=== PATIENT | female | born 1990 | race Caucasian/White ===

== ENCOUNTER 2018-09-14 10:16 | Observation (INO) | payer OTHER, SELFPAY ==
[2018-09-14] VITALS (15 sets, daily range): BP systolic 96–138; BP diastolic 52–97; PULSE 44–92; RESP 12–20; TEMP 36.2–36.9; O2SAT 80–100; BMI 41.5; BMI 41.9
--- NOTE | 2018-09-14 | PATH_ITS ---
[facility] Accession Number: [id number] . 01 Material submitted: . GALLBLADDER WITH CONTENTS . 02 Diagnosis: Gallbladder, Cholecystectomy: Chronic cholecystitis with cholelithiasis. One benign cystic duct lymph node. Negative for dysplasia and malignancy. MRV/09/19/2018 . 02 Electronically signed: . Gavi Aceves MD, Pathologist NPI- [id number] . 01 Gross description: . Received in formalin, labeled gallbladder, is an intact gallbladder (length-14.1 cm, diameter-4.0 cm) with olson-hwang smooth shiny serosa and a patent cystic duct. A lymph node (1.1 x 0.8 x 0.4 cm) is identified. The lumen contains brown turbid gelatinous material and one hwang-red oblong gritty calculus (3.8 x 2.5 x 1.8 cm) with an robyn crystalline cut surface. The mucosa is hwang smooth and flat. The wall is up to 0.1 cm thick. No nodules, masses or lesions are identified. Section code: (A1) cystic duct resection margin and two serial sections from the body; (A2) two longitudinal sections from the fundus; (A3) one bisected lymph node. ([id number]) /MRV . 02 Pathologist provided ICD-10: K80.60 . 02 CPT . 899367 Performed at: 01 [facility] [address] [place] [address], [place], [place] [id number] MD Eulogio Mills MD Phone: [phone] Performed at: 02 [facility] [address] [place], [place] [id number] MD Gavi Aceves MD Phone: [phone]
[2018-09-14] MEDS: ONDANSETRON 4 MG/2 ML INJ IV (10:35)
[2018-09-14 10:43] LABS: Add Manual Diff / Slide Review NO; Basophils Percent Auto 0.6 % (0-2); Hematocrit 45.3 % (36-46); Hemoglobin 15.2 g/dL (12.0-16.0); Lymphocytes Percent Auto 32.3 % (25-40); Mean Corpuscular HGB Conc 33.6 % (30-36); Mean Corpuscular Hemoglobin 31.1 PG (26-34); Mean Corpuscular Volume 92.5 fL (80-100); Monocytes Percent Auto 7.6 % (3-14); Neutrophils Absolute Auto 6400 /uL (3000-5900); Neutrophils Percent Auto 55.5 % (50-75); Platelet Count 237 X10^3/uL (150-400); Red Blood Cell Count 4.89 X10^6/uL (4.0-5.2); Red Cell Distribution Width 13.4 % (11.6-14.8); White Blood Cell Count 11.5 X10^3/uL (4.5-11.0)
[2018-09-14 10:46] LABS: Prothrombin Time 11.2 SECONDS (10.1-12.7)
[2018-09-14 10:49] LABS: PTT Partial Thromboplastin Tim 32 SECONDS (26.4-36.2)
--- NOTE | 2018-09-14 10:52 | ED.ABDPAIN ---
HPI - Abdominal Pain General Chief Complaint: Abdominal Pain Stated Complaint: PAIN IN BACK UNDER RIGHT SHOULDER Time Seen by Provider: 09/14/18 10:52 Source: patient Mode of arrival: ambulatory Limitations: no limitations History of Present Illness HPI narrative: 28-year-old female here for evaluation of right mid back pain and right flank pain radiating around to her right upper quadrant. Patient states that she does have a history of gallbladder stones that was diagnosed after an ultrasound was performed a couple years ago. She states that this was found after having symptoms very similar to what she has today. Has had some nausea but no vomiting. No rashes. Has not tried anything for this prior to arrival. States that it woke her from sleep in the middle the night. Has continued since then. Related Data Home Medications Medication Instructions Recorded Confirmed multivitamin 1 tab PO DAILY 09/14/18 09/14/18 Allergies Allergy/AdvReac Type Severity Reaction Status Date / Time No Known Drug Allergies Allergy Verified 09/14/18 10:21 Review of Systems Constitutional Denies fever(s) and Denies headache(s) ENT Ears, Nose, Mouth, and Throat: Denies vertigo and Denies headache(s) Cardiovascular Denies chest pain, Denies syncope and Denies dyspnea Respiratory Denies dyspnea Gastrointestinal Gastrointestinal: Reports abdominal pain, Denies change in bowel habits, Reports nausea and Denies vomiting Genitourinary Denies dysuria, Reports flank pain and Denies vaginal discharge Musculoskeletal Denies myalgias and Denies arthralgias Integumentary/Breasts Denies rash Neurologic Denies vertigo, Denies syncope and Denies headache(s) Hematologic/Lymphatic Denies easy bleeding and Denies easy bruising [facility] Medical History Cholelithiasis (Acute) Morbid obesity with BMI of 40.0-44.9, adult (Acute) Surgical History H/O tubal ligation (Acute) Previous section (Acute) Family History: Reviewed 09/14/18 by Reece Myers MD Social History Smoking Status: Current every day smoker Exam Initial Vital Signs Initial Vital Signs: Vital Signs Temperature 97.4 F L 09/14/18 10:18 Pulse Rate 80 09/14/18 10:18 Respiratory Rate 14 09/14/18 10:18 Blood Pressure 138/97 H 09/14/18 10:18 Pulse Oximetry 97 09/14/18 10:18 Const General: cooperative, well developed, well groomed and No acute distress Orientation: alert, awake and oriented x3 Chest Chest: normal inspection of the chest Resp Effort & Inspection: normal respiratory effort Auscultation: clear to auscultation bilaterally Cardio Rate: regular rate Rhythm: regular rhythm GI Inspection: non-distended Palpation: soft, No firm and tender ( right upper quadrant. Positive White sign) Back/Spine/Pelvis Back: No CVA tenderness Skin Lesions: no lesions Rashes: no rashes Neuro General: alert, awake and oriented x3 Extrem General: normal to inspection and capillary refill normal Psych Appearance: grossly normal and well kempt Course Orders Ordered: ED Orders 09/14/18 10:25 Complete Blood Count AUTO DIFF Stat Comprehensive Metabolic Panel Stat Lipase Stat Partial Thromboplastin Time Stat Test Serum,Qual Stat Prothrombin Time INR Stat 09/14/18 11:11 US abdomen complete Stat Discontinued Medications Morphine Sulfate (Morphine) 4 mg IV NOW ONE Stop: 09/14/18 11:12 Last Admin: 09/14/18 11:17 Dose: 4 mg Ondansetron HCl (Zofran) 4 mg IV NOW ONE Stop: 09/14/18 10:26 Last Admin: 09/14/18 10:35 Dose: 4 mg Vital Signs - 8 hr 09/14/18 10:18 09/14/18 13:30 Temperature 97.4 F L Pulse Rate 80 50 L Respiratory Rate 14 12 Blood Pressure 138/97 H Blood Pressure [Left Arm] 108/65 Pulse Oximetry 97 100 MDM - Abdominal Pain Lab Data Attestation: I reviewed the patient's lab results. Result diagrams: 09/14/18 10:25 09/14/18 10:25 Lab Results 09/14/18 09/14/18 09/14/18 Range/Units 10:25 10:25 10:25 WBC 11.5 H (4.5-11.0) X10^3/uL RBC 4.89 (4.0-5.2) X10^6/uL Hgb 15.2 (12.0-16.0) g/dL Hct 45.3 (36-46) % MCV 92.5 (80-100) fL MCH 31.1 (26-34) PG MCHC 33.6 (30-36) % RDW 13.4 (11.6-14.8) % Plt Count 237 (150-400) X10^3/uL Neut % (Auto) 55.5 (50-75) % Lymph % (Auto) 32.3 (25-40) % [place] % (Auto) 7.6 (3-14) % Eos % (Auto) 4.0 (2-4) % Baso % (Auto) 0.6 (0-2) % Neut # (Auto) 6400 H (9085-5233) /uL PT 11.2 (10.1-12.7) SECONDS INR 1.0 (0.9-1.3) APTT 32 (26.4-36.2) SECONDS Sodium 141 (137-145) mmol/L Potassium 4.5 (3.4-5.1) mmol/L Chloride 105 (98-107) mmol/L Carbon Dioxide 23 (22-32) mmol/L BUN 15 (7-17) mg/dL Creatinine 0.80 (0.52-1.04) mg/dL Estimated GFR > 60.0 (>60) mL/min BUN/Creatinine Ratio 18.8 (6-22) Glucose 95 (70-100) mg/dL Calcium 9.8 (8.4-10.2) mg/dL Total Bilirubin 0.4 (0.2-1.3) mg/dL AST 20 (14-36) IU/L ALT 23 (9-52) IU/L Alkaline Phosphatase 55 (38-126) U/L Total Protein 6.9 (6.3-8.2) g/dL Albumin 4.2 (3.5-5.0) g/dL Globulin 2.7 (1.7-4.1) g/dL Albumin/Globulin Ratio 1.6 (1.0-2.8) Lipase 139 (23-300) U/L Serum , Qual (Negative) 09/14/18 Range/Units 10:25 WBC (4.5-11.0) X10^3/uL RBC (4.0-5.2) X10^6/uL Hgb (12.0-16.0) g/dL Hct (36-46) % MCV (80-100) fL MCH (26-34) PG MCHC (30-36) % RDW (11.6-14.8) % Plt Count (150-400) X10^3/uL Neut % (Auto) (50-75) % Lymph % (Auto) (25-40) % [place] % (Auto) (3-14) % Eos % (Auto) (2-4) % Baso % (Auto) (0-2) % Neut # (Auto) (9194-4228) /uL PT (10.1-12.7) SECONDS INR (0.9-1.3) APTT (26.4-36.2) SECONDS Sodium (137-145) mmol/L Potassium (3.4-5.1) mmol/L Chloride (98-107) mmol/L Carbon Dioxide (22-32) mmol/L BUN (7-17) mg/dL Creatinine (0.52-1.04) mg/dL Estimated GFR (>60) mL/min BUN/Creatinine Ratio (6-22) Glucose (70-100) mg/dL Calcium (8.4-10.2) mg/dL Total Bilirubin (0.2-1.3) mg/dL AST (14-36) IU/L ALT (9-52) IU/L Alkaline Phosphatase (38-126) U/L Total Protein (6.3-8.2) g/dL Albumin (3.5-5.0) g/dL Globulin (1.7-4.1) g/dL Albumin/Globulin Ratio (1.0-2.8) Lipase (23-300) U/L Serum , Qual Negative (Negative) Point of care testing: Urine Dip Bedside Urine Glucose Negative Bedside Urine Bilirubin - Negative Bedside Urine Ketone - Negative Urine Specific [place] 1.030 Bedside Urine Occult Blood - Negative Bedside Urine pH 6.0 Bedside Urine Protein - Negative Bedside Urine Urobilinogen - Negative Bedside Urine Nitrite - Negative Bedside Urine Leukocytes - Negative Esterase Imaging Data US - abdomen: Radiologist's impression: [address] [address] Ultrasound Report Signed Patient: Jeannette Masterson MMR#: [id number] : 1990Acct:[id number] Age/Sex: 28 / FDate of Service: 09/14/18 Loc: ED Accession Number: [id number] Procedure: US abdomen complete Ordering Provider: Hans Fernandez D.O. PROCEDURE: US ABDOMEN COMPLETE INDICATIONS: PAIN; KNOWN GALLSTONE TECHNIQUE: Real-time scanning was performed of the abdominal and retroperitoneal organs, with image documentation. COMPARISON: None. FINDINGS: Liver: The liver demonstrates normal size. The liver demonstrates generalized increased echogenicity, as on image 32. This decreases ultrasound sensitivity for detection of hepatic masses. Gallbladder: A 4.6 cm gallstone is seen lodged at the gallbladder neck. Gallbladder wall is mildly thickened at 3.7 mm. No pericholecystic fluid is seen. The sonographic White sign is positive. Biliary ducts: Intrahepatic bile ducts are non-dilated. Extrahepatic bile duct caliber measures 5-6 mm. Normal is 6-7 mm or less in diameter, or 10 mm or less post-cholecystectomy. Pancreas: Not seen, obscured by overlying bowel gas. Spleen: Spleen is normal in size and homogeneous in echotexture. Kidneys: Kidneys are normal in size and echotexture. Right kidney measures 11.3 cm long; left kidney measures 12.6 cm long. No hydronephrosis or nephrolithiasis. No solid masses. The renal cortex measures within normal limits for thickness. Aorta: Visualized aorta is normal in caliber at less than 3 cm. Iliacs: Proximal common iliac arteries are normal in caliber at less than 2.5 cm. IVC: Intrahepatic inferior vena cava is patent. Miscellaneous: No free abdominal fluid. IMPRESSION: These findings are concerning for acute cholecystitis, with a 4.6 cm gallstone that is lodged within the gallbladder neck, associated gallbladder wall thickening and a positive sonographic White sign. Please correlate with physical examination findings, patient presentation, and laboratory values. The liver demonstrates increased echogenicity. This finding is nonspecific, yet it is most commonly attributed to fatty infiltration. Dictated by: Giovanny Rodriges M.D. on 09/14/2018 at 11:14 Approved by: Giovanny Rodriges M.D. on 09/14/2018 at 11:16 MDM Narrative Medical decision making narrative: patient with some relief after the pain medications here in the emergency department. No vomiting here. Does have a right upper quadrant ultrasound showing what appears to be cholecystitis. Also very large gallbladder stone. I discussed the case with Dr. Myers with General surgery who evaluated the patient and will admit for surgical intervention. I discussed the admission with the patient. She expressed understanding and agreement. Discharge Plan Departure Patient Disposition: Admitted as Observation Clinical Impression: Acute cholecystitis Interventions: ED Discharge Assessment Last Done: 09/14/18 13:49 Admit Date/Time: 09/14/18 13:20 Admit Provider: Reece Myers
[2018-09-14 11:00] LABS: Alanine Aminotransferase 23 IU/L (9-52); Albumin 4.2 g/dL (3.5-5.0); Albumin Globulin Ratio 1.6 (1.0-2.8); Alkaline Phosphatase 55 U/L (38-126); Aspartate Aminotransferase 20 IU/L (14-36); BUN Creatinine Ratio 18.8 (6-22); Bilirubin Total 0.4 mg/dL (0.2-1.3); Blood Urea Nitrogen 15 mg/dL (7-17); Calcium 9.8 mg/dL (8.4-10.2); Carbon Dioxide 23 mmol/L (22-32); Chloride 105 mmol/L (98-107); Estimated Glomerular Filt Rate > 60.0 mL/min (>60); Globulin 2.7 g/dL (1.7-4.1); Glucose 95 mg/dL (70-100); HEMOLYSIS 31 (0-50); Lipase 139 U/L (23-300); Potassium 4.5 mmol/L (3.4-5.1); Sodium 141 mmol/L (137-145); Total Protein 6.9 g/dL (6.3-8.2)
--- NOTE | 2018-09-14 11:11 | DI.US.S_ITS ---
PROCEDURE: US ABDOMEN COMPLETE INDICATIONS: PAIN; KNOWN GALLSTONE TECHNIQUE: Real-time scanning was performed of the abdominal and retroperitoneal organs, with image documentation. COMPARISON: None. FINDINGS: Liver: The liver demonstrates normal size. The liver demonstrates generalized increased echogenicity, as on image 32. This decreases ultrasound sensitivity for detection of hepatic masses. Gallbladder: A 4.6 cm gallstone is seen lodged at the gallbladder neck. Gallbladder wall is mildly thickened at 3.7 mm. No pericholecystic fluid is seen. The sonographic White sign is positive. Biliary ducts: Intrahepatic bile ducts are non-dilated. Extrahepatic bile duct caliber measures 5-6 mm. Normal is 6-7 mm or less in diameter, or 10 mm or less post-cholecystectomy. Pancreas: Not seen, obscured by overlying bowel gas. Spleen: Spleen is normal in size and homogeneous in echotexture. Kidneys: Kidneys are normal in size and echotexture. Right kidney measures 11.3 cm long; left kidney measures 12.6 cm long. No hydronephrosis or nephrolithiasis. No solid masses. The renal cortex measures within normal limits for thickness. Aorta: Visualized aorta is normal in caliber at less than 3 cm. Iliacs: Proximal common iliac arteries are normal in caliber at less than 2.5 cm. IVC: Intrahepatic inferior vena cava is patent. Miscellaneous: No free abdominal fluid. IMPRESSION: These findings are concerning for acute cholecystitis, with a 4.6 cm gallstone that is lodged within the gallbladder neck, associated gallbladder wall thickening and a positive sonographic White sign. Please correlate with physical examination findings, patient presentation, and laboratory values. The liver demonstrates increased echogenicity. This finding is nonspecific, yet it is most commonly attributed to fatty infiltration. Dictated by: Giovanny Rodriges M.D. on 09/14/2018 at 11:14 Approved by: Giovanny Rodriges M.D. on 09/14/2018 at 11:16
[2018-09-14] MEDS: MORPHINE 4 MG/ML INJ IV (11:17)
[2018-09-14 12:58] LABS: Pregnancy Test Serum,Qual Negative (Negative)
--- NOTE | 2018-09-14 13:56 | P.HP_ITS ---
History of Present Illness Date Patient Seen: 09/14/18 Time Patient Seen: 13:48 Chief complaint: PAIN IN BACK UNDER RIGHT SHOULDER Narrative: 28-year-old otherwise healthy but obese female who presented the emergency department today with several hour history of acute right upper quadrant and right flank pain. She was in her usual state of health last evening and had tolerated her meal without any issues. She went to bed and slept normally although she had to awaken approximately 2:00 a.m. today to attend to her 1-year-old child but then later awoke unexpectedly around 6:00 a.m. this morning with right upper quadrant abdominal pain. Pain was described as constant and unrelenting intermittently sharp in nature. However, she describes the pain mostly as a pressure sensation which now has radiated mostly to the right subscapular region. Her major complaint of discomfort is in the mid back region at this point. Denies any abdominal pain elsewhere. No fever or chills. She has had no nausea or vomiting. However, she is somewhat anorexic. She last drank coffee with a small amount a cream at approximately 6: 00 a.m. this morning but has had nothing since. Reports normal bowel and bladder function yesterday. No dysuria or hematuria today. No chest pain or shortness of breath. Denies any recent history of jaundice, dark brown urine, or acholic stools. Patient History Medical History Cholelithiasis (Acute) Morbid obesity with BMI of 40.0-44.9, adult (Acute) Surgical History H/O tubal ligation (Acute) Previous section (Acute) Family & Social History Family History: Reviewed 09/14/18 by Reece Myers MD Safety & Behavioral: Feels Safe in Current Yes Environment Been Physically Hurt or No Threatened By a Person Tobacco & Substance use: Smoking Status Current every day smoker alcohol intake frequency 0-2 drinks per day Substance Use Type does not use Meds Home Medications Medication Instructions Recorded Confirmed Type multivitamin 1 tab PO DAILY 09/14/18 09/14/18 History Allergies Allergy/AdvReac Type Severity Reaction Status Date / Time No Known Drug Allergies Allergy Verified 09/14/18 10:21 Review of Systems Review of Systems All systems reviewed & are unremarkable except as noted in HPI and below Exam Vital Signs (past 8 hours): - 09/14/18 10:18 09/14/18 13:30 Temperature 97.4 F L Pulse Rate 80 50 L Respiratory Rate 14 12 Blood Pressure 138/97 H Blood Pressure [Left Arm] 108/65 Pulse Oximetry 97 100 Oxygen Delivery Method Room Air Narrative Exam Narrative: Obese female lying comfortably on the gurney in the emergency department in no acute distress. Alert oriented x3. No fever here in the emergency department. She is not tachycardic. Blood pressure is normal. Sclera nonicteric Chest clear auscultation bilaterally although breath sounds are diminished bilaterally due to body habitus. No crackles or wheezes. Regular rate and rhythm. No murmurs. Abdomen is obese but soft and nondistended. She has multiple abdominal striae. No masses. She is focally tender in the right upper quadrant with a positive White sign. I appreciate no rashes or other skin lesions along the abdomen or flank. Extremities show no clubbing or cyanosis. Dorsal pedis pulses are palpable bilaterally. Objective Labs Result Diagrams: 09/14/18 10:25 09/14/18 10:25 Labs: Laboratory Results - last 24 hr 09/14/18 09/14/18 09/14/18 10:25 10:25 10:25 WBC 11.5 H RBC 4.89 Hgb 15.2 Hct 45.3 MCV 92.5 MCH 31.1 MCHC 33.6 RDW 13.4 Plt Count 237 Neut % (Auto) 55.5 Lymph % (Auto) 32.3 [place] % (Auto) 7.6 Eos % (Auto) 4.0 Baso % (Auto) 0.6 Neut # (Auto) 6400 H PT 11.2 INR 1.0 APTT 32 Sodium 141 Potassium 4.5 Chloride 105 Carbon Dioxide 23 BUN 15 Creatinine 0.80 Estimated GFR > 60.0 BUN/Creatinine Ratio 18.8 Glucose 95 Calcium 9.8 Total Bilirubin 0.4 AST 20 ALT 23 Alkaline Phosphatase 55 Total Protein 6.9 Albumin 4.2 Globulin 2.7 Albumin/Globulin Ratio 1.6 Lipase 139 Serum , Qual 09/14/18 10:25 WBC RBC Hgb Hct MCV MCH MCHC RDW Plt Count Neut % (Auto) Lymph % (Auto) [place] % (Auto) Eos % (Auto) Baso % (Auto) Neut # (Auto) PT INR APTT Sodium Potassium Chloride Carbon Dioxide BUN Creatinine Estimated GFR BUN/Creatinine Ratio Glucose Calcium Total Bilirubin AST ALT Alkaline Phosphatase Total Protein Albumin Globulin Albumin/Globulin Ratio Lipase Serum , Qual Negative I have personally reviewed her abdominal ultrasound done today through the emergency department. Findings are essentially unremarkable other than a mildly thickened gallbladder wall surrounding a 4.6 cm gallstone impacted in the neck of the gallbladder. Bile ducts are of normal size with no dilatation. She has a sonographic positive White sign as well. Assessment & Plan Plan: Assessment/Plan Narrative: 28-year-old female with acute cholecystitis secondary to cholelithiasis. She has a known history of cholelithiasis actually diagnosed October of this year during a previous episode of right upper quadrant abdominal pain. I therefore suspect this is acute cholecystitis on chronic cholecystitis. However, she has no evidence of choledocholithiasis. At this point I would recommend laparoscopic cholecystectomy. We could proceed to the operating room later today at her discretion. She wishes to proceed if possible. I therefore reviewed the technical details of laparoscopic cholecystectomy as well as anticipated recovery and healing times. Risks, benefits, alternatives were discussed. Risks including but not limited to anesthesia, bleeding, infection, pain, scars, need convert open procedure, need for drains, liver injury, gastric injury, duodenal injury, small-bowel injury, colon injury, bile duct injury, bile duct leak, delayed bleeding postoperatively, hematoma, seroma, major vascular injury, abscess, need for further major abdominal surgery including hepatic surgery, need for endoscopic procedures, and poor wound healing were all discussed at length. All questions were answered to her satisfaction, and she voiced understanding. Consent was placed on the chart. We will proceed later today with cholecystectomy as above.
--- NOTE | 2018-09-14 13:56 | PM.PREOP ---
Pre-operative Note Interval Note Pre-op Check: Yes History & Physical Reviewed by Physician, Yes Exam Performed and Yes History & Physical exam performed today by Physician Changes: No H&P completed within 30 days and has changed as indicated here:: Patient seen and examined in the emergency department today. History and physical examination documented and placed on the chart today. There have been no changes over the last several hours. We will proceed with laparoscopic cholecystectomy today as planned.
[2018-09-14] MEDS: SODIUM CHLORIDE 0.9% 1,000 ML 100 ML IV ×2 (14:43→19:35)
[2018-09-14] MEDS: HYDROMORPHONE 1 MG INJ IV (14:49)
--- NOTE | 2018-09-14 14:54 | PC.NURSE ---
Pt admitted from Er for cholecystectomy later this evening under Dr Myers. Consent signed. Dilaudid 1 mg given for ongoing throbbing pain in right upper back. Pt is a mother of three children aged 1 to 10 and spouse, Michael will be in later this afternoon. Pt in no distress.
[2018-09-14] MEDS: LACTATED RINGERS 1,000 ML 42 ML IV (15:57)
[2018-09-14] MEDS: CEFAZOLIN 2 GM/100 ML FROZ.PIGGY IV (16:39)
--- NOTE | 2018-09-14 17:02 | SUR.OPER ---
Supine on padded OR bed, head on pillow, arms secured on padded arm boards at <90 degrees abduction, legs uncrossed, safety belt at thigh, tape over blanket over lower legs, footboard.
[2018-09-14] MEDS: LIDOCAINE 1% W/EPI INJ 4 ML INJ (17:08)
[2018-09-14] MEDS: BUPIVACAINE 0.5% (PF) VIAL 30 ML INJ (17:09)
--- NOTE | 2018-09-14 18:39 | PM.OP.1 ---
Operative Date/Time/Diagnoses Date of procedure: 09/14/18 Time of procedure: 18:39 Pre-op diagnosis: Acute cholecystitis secondary to cholelithiasis Post-op diagnosis: same Procedure & Clinicians Procedure: Laparoscopic cholecystectomy Procedure was noted to be technically demanding and complex due to patient's significant morbid obesity, significant acute inflammation, and large impacted gallstone within the neck of the gallbladder Same procedure as scheduled: Yes Indications: 28-year-old morbidly obese female who presented the emergency department today with acute onset of right upper quadrant abdominal pain. Examination and evaluation were consistent with acute cholecystitis secondary to gallstones. Urgent laparoscopic cholecystectomy was recommended. Surgeon: Reece Myers Click Yes if Unassisted: Yes Anesthesia Type: General Operative Notes Findings: 1. Acutely inflamed gallbladder containing thick viscous bile consistent with cholecystitis 2. Large approximately 5 or 6 cm gallstone densely impacted into the neck of the gallbladder 3. Mild hepatomegaly secondary to probable hepatic steatosis 4. Otherwise normal intraperitoneal structures within the limits of laparoscopic visualization and significant obesity Closure Type: primary Specimen(s): other (Gallbladder) Implants & Drains: None Estimated Blood Loss (mL): 50 Blood products transfused: none Procedure in detail: After obtaining informed consent the patient was brought to the operating room and placed supine on the table and all pressure points padded appropriately. After satisfactory induction of anesthesia the abdomen was prepped and draped in usual sterile fashion. SCOAP time-out was performed per standard protocol. A 1 :1 mixture 1% lidocaine with 1 :100,000 epinephrine and 0.5% plain Marcaine was injected in the skin and subcutaneous tissue at the superior aspect of the umbilicus for postoperative analgesia. Vertical midline incision was created at the superior aspect of the umbilicus for a distance of approximately 3 cm using 11 scalpel blade. Blunt dissection was employed to expose the rectus fascia. I should note that the fascia was quite deep given the patient's significant obesity and body habitus. Fascia was secured with a Tata clamp and elevated into the operative field where was somewhat visualized so that we could perform a midline incision between the Tata clamps with 11 scalpel blade followed by Metzenbaum scissors. Edges of the fascia were then secured with the Tata clamps in order to place 2 individual 0 Vicryl sutures superiorly and inferiorly. Underlying peritoneum was eventually visualized using S retractors and divided between hemostats under direct visualization with Metzenbaum scissors. Blunt 12 mm Rasmussen trocar was inserted and carbon dioxide pneumoperitoneum was created. Abdomen was visually explored with the 5 mm 30 degree laparoscope. Findings are as above. Patient was placed in reverse Trendelenburg position and a site was chosen for insertion of a 5 mm epigastric trocar. Area was anesthetized and skin incision created with 11 scalpel blade so that the 5 mm extra long trocar could be inserted under direct visualization to the right of the falciform ligament. In a similar fashion 2 other separate long 5 mm trocars were inserted in the right lateral abdomen. Ratcheted grasper was used to secure the fundus of the gallbladder but the gallbladder was noted be extremely tense and inflamed. Therefore laparoscopic decompression of the gallbladder was performed with a needle trocar device and 60 cc syringe. Fundus was then again secured with a ratcheted grasper and retracted superiorly and medially. Adhesions between the omentum, duodenum, and infundibulum of the gallbladder were taken down meticulously with Maryland dissect her and Kittner dissect her taking great care to avoid injury to adjacent structures. The infundibulum of the gallbladder could not be adequately secured with a 2nd ratcheted grasper due to the large impacted stone. Therefore the body of the gallbladder was secured with a ratcheted grasper and meticulous dissection was performed near the triangle of Calot using both a Maryland dissector and a Kittner dissector. Cystic duct was identified and skeletonized the surrounding connective tissue. Junction of the duct and the gallbladder was clearly visualized and 3 clips were placed proximally and 1 distally before dividing the duct near its junction with the gallbladder. In a similar fashion cystic artery was controlled with 2 clips proximally 1 distally and then divided at its junction with the gallbladder. Gallbladder was then removed from the hepatic bed using monopolar cautery. Dissection was meticulous and somewhat slow given the significant inflammation between the gallbladder and the liver as well as technical demand related to the patient's hepatomegaly and body habitus. However, the gallbladder was eventually liberated without injury to adjacent structures and the specimen was placed in an Endo pouch. Gallbladder was retrieved through the umbilical incision which had to be significantly lengthened along the fascia with Metzenbaum scissors in order to extract the extremely large thickened gallbladder containing the significantly sized stone. Specimen was sent for permanent section. Fascia at the umbilical site was then secured with other multiple interrupted 0 Vicryl suture. Blunt 12 mm Rasmussen trocar was placed back between the sutures into the abdomen and pneumoperitoneum was reestablished. Liver bed was meticulously examined with the laparoscope and found to be hemostatic. No evidence of hemorrhage or bile leak. Previously placed clips were also meticulously examined and noted to be in good position. No evidence of hemorrhage or leakage from the cystic duct. Area was irrigated with copious amounts of sterile saline solution which was suctioned and noted to be clear. Hemostasis was again verified. Patient was returned to the supine position and further irrigation in the right upper quadrant was performed. Irrigant was suctioned from the abdomen and noted to be clear. Instruments and trocars were then removed under direct visualization and hemostasis verified. Carbon dioxide was evacuated. Fascia at the umbilical site was closed with the previously placed multiple interrupted 0 Vicryl suture. Skin at all 4 incisions was then closed in a subcuticular fashion with running 4 0 Monocryl suture. Dermal adhesive was applied to the skin. Anesthesia was reversed and patient extubated in the operating room. She was taken recovery stable condition. Complications: none Condition: stable Disposition: PACU Plan for aftercare: 1. Return to regular surgical floor for ongoing convalescence
--- NOTE | 2018-09-14 19:02 | SUR.PHASEI ---
Pt. admitted into PACU with oral airway and anestesia doing jaw lift due to O2 sats <80 with roomair. Simple mask applied with 15 liters O2, pt. started to wake up and breath on her own, jaw lift ceased and pt. maintaining airway.
[2018-09-14] MEDS: OXYCODONE IR 5 MG TABLET PO ×2 (19:55→23:05)
--- NOTE | 2018-09-14 21:55 | PC.NURSE ---
SHIFT NOTE Received pt at approximately 1930 via bed, accompanied by LITHOGRAPHIC PLATEMAKER. c/o nausea without emesis, had just received prn zofran prior to transfer to room. pt given some alcohol swabs to sniff to help with nausea. pt states feeling difficulty catching breath but spo2 remains above 95% on room air (pt with history of smoking). lap sites x3 noted to abdominal area with skin glue. bowel sounds hypoactive, abdomen tender to touch. pt denies any flatus. c/ abdominal pain rated 5/10, ice pack to abdomen maintained, administered PRN oxycodone. tolerating clear liquids. call light within reach.
[2018-09-15 00:20] VITALS: BP 105/67; PULSE 63; RESP 20; TEMP 36.7; O2SAT 95
[2018-09-15] MEDS: OXYCODONE IR 5 MG TABLET PO ×4 (02:41→13:51)
[2018-09-15 03:00] VITALS: BP 112/54; PULSE 74; RESP 18; TEMP 36.4; O2SAT 94
[2018-09-15] MEDS: SODIUM CHLORIDE 0.9% 1,000 ML 100 ML IV (05:16)
[2018-09-15 07:45] VITALS: BP 107/68; PULSE 87; RESP 19; TEMP 36.7; O2SAT 94
[2018-09-15] MEDS: MULTIVITAMIN 1 TABLET 1 TAB PO (08:05)
[2018-09-15] MEDS: ENOXAPARIN 40 MG/0.4 ML SYRINGE SUBCUT (08:05)
[2018-09-15] MEDS: ACETAMINOPHEN 325 MG TABLET 650 MG PO (08:06)
--- NOTE | 2018-09-15 08:56 | CM.DANOTE ---
DCP: Case received, EMR reviewed and met with patient. Introduced self and role. DCP template completed with information currently available. Patient is a 28 year old female who admitted yesterday afternoon to the care of the hospitalist team. PCP: CHASE Fuller. Payer: confirmed: Jag Li. Patient came to hospital via family vehicle with right quadrant pain. Patient was diagnosed with Cholecystitis. Patient had surgery yesterday. Met with patient and introduced self. 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 Patient is hopeful to go home today. P: Patient may be discharging home today if stable. Marlene Tijerina RN/Flying Teacher
--- NOTE | 2018-09-15 09:41 | PM.DS.1 ---
History of Present Illness Date Patient Seen: 09/15/18 Time Patient Seen: 09:41 Chief complaint: PAIN IN BACK UNDER RIGHT SHOULDER Narrative: 28-year-old otherwise healthy but obese female who presented the emergency department today with several hour history of acute right upper quadrant and right flank pain. She was in her usual state of health last evening and had tolerated her meal without any issues. She went to bed and slept normally although she had to awaken approximately 2:00 a.m. today to attend to her 1-year-old child but then later awoke unexpectedly around 6:00 a.m. this morning with right upper quadrant abdominal pain. Pain was described as constant and unrelenting intermittently sharp in nature. However, she describes the pain mostly as a pressure sensation which now has radiated mostly to the right subscapular region. Her major complaint of discomfort is in the mid back region at this point. Denies any abdominal pain elsewhere. No fever or chills. She has had no nausea or vomiting. However, she is somewhat anorexic. She last drank coffee with a small amount a cream at approximately 6:00 a.m. this morning but has had nothing since. Reports normal bowel and bladder function yesterday. No dysuria or hematuria today. No chest pain or shortness of breath. Denies any recent history of jaundice, dark brown urine, or acholic stools. Discharge Providers Date of admission: 09/14/18 13:20 Consults: 09/14/18 14:15 Consult to Discharge Planning Routine Comment: Discharge provider: Reece Myers MD Discharge Date: 09/15/18 Summary Discharge Diagnosis: 1. Acute cholecystitis secondary to cholelithiasis 2. Morbid obesity 3. History of mastitis 4. Laparoscopic cholecystectomy September 14, 2018 Hospital Course: Patient was admitted from the emergency department to the regular floor where she was taken urgently to the operating room for laparoscopic cholecystectomy. She tolerated this well and was returned to the regular surgical floor where she remained afebrile and hemodynamically stable overnight. She is tolerating a regular diet at the time of discharge on postoperative day 1. She has had return of spontaneous normal bowel and bladder function. She has been completely afebrile with no subjective fevers. No nausea or vomiting. She is ambulating without difficulty. Her pain is minimal and otherwise well controlled with oxycodone orally. Because of her overall stable condition she is discharged home on postoperative day 1. She will follow up in the surgery clinic in 2 weeks. However, she has been instructed to call or return sooner for any issues with fever, chills, nausea, vomiting, wound drainage, progressive abdominal pain, lack of bowel function, or inability to tolerate oral intake. All questions were answered to her satisfaction, and she voiced understanding. Status at Discharge Cognitive/behavioral status at discharge: Alert, oriented x3 Functional status at discharge: independent ambulation Overall status at discharge: patient is progressing back to baseline Time Spent with Patient Less than 30 minutes Exam Vital Signs (past 8 hours): - 09/15/18 03:00 09/15/18 07:45 Temperature 97.6 F 98.0 F Pulse Rate 74 87 Respiratory Rate 18 19 Blood Pressure 112/54 L 107/68 Pulse Oximetry 94 94 Oxygen Delivery Method Room Air Oxygen Flow Rate 15 Narrative Exam Narrative: Well-nourished well-developed female sitting comfortably in bedside chair in no acute distress. Alert oriented x3 No fevers since admission. No tachycardia. Blood pressure is normal. Sclera nonicteric Regular rate and rhythm Chest clear to auscultation Abdomen obese but soft and nondistended. Incisions are clean, dry, and intact without erythema or hematoma. No drainage. She is appropriately tender to palpation near the incisions but certainly with no guarding or rebound. Extremities show no clubbing or cyanosis Objective Labs Result Diagrams: 09/14/18 10:25 09/14/18 10:25 Labs: Laboratory Results - last 24 hr 09/14/18 09/14/18 09/14/18 10:25 10:25 10:25 WBC 11.5 H RBC 4.89 Hgb 15.2 Hct 45.3 MCV 92.5 MCH 31.1 MCHC 33.6 RDW 13.4 Plt Count 237 Neut % (Auto) 55.5 Lymph % (Auto) 32.3 [place] % (Auto) 7.6 Eos % (Auto) 4.0 Baso % (Auto) 0.6 Neut # (Auto) 6400 H PT 11.2 INR 1.0 APTT 32 Sodium 141 Potassium 4.5 Chloride 105 Carbon Dioxide 23 BUN 15 Creatinine 0.80 Estimated GFR > 60.0 BUN/Creatinine Ratio 18.8 Glucose 95 Calcium 9.8 Total Bilirubin 0.4 AST 20 ALT 23 Alkaline Phosphatase 55 Total Protein 6.9 Albumin 4.2 Globulin 2.7 Albumin/Globulin Ratio 1.6 Lipase 139 Serum , Qual 09/14/18 10:25 WBC RBC Hgb Hct MCV MCH MCHC RDW Plt Count Neut % (Auto) Lymph % (Auto) [place] % (Auto) Eos % (Auto) Baso % (Auto) Neut # (Auto) PT INR APTT Sodium Potassium Chloride Carbon Dioxide BUN Creatinine Estimated GFR BUN/Creatinine Ratio Glucose Calcium Total Bilirubin AST ALT Alkaline Phosphatase Total Protein Albumin Globulin Albumin/Globulin Ratio Lipase Serum , Qual Negative Discharge Plan Discharge Plan Patient Disposition: Home Discharge Med Rec/Prescriptions Prescriptions: New oxycodone 5 mg tablet 5 mg PO Q3H PRN (Reason: pain) Qty: 30 RF: 0 Continue multivitamin Tablet 1 tab PO DAILY RF: 0 Follow up/Referrals: Reece Myers MD [Physician] - 2 Weeks (Please call office during regular hours to obtain exact appointment time and date) Provider Discharge Instructions Diet: Diet as Tolerated Cold/Heat Therapy: May apply ice pack to incisions as needed for comfort Other treatments: Expect some bruising and swelling around the incisions, especially near the belly button Skin/Wound/Dressing Care Report to your healthcare provider any signs of infection, such as:: chills, fever, increased pain and unusual drainage Dressing: No dressing necessary Other wound treatment: February shower beginning September 15, 2018 Do not soak incision in bathtub or pool for 2 weeks Discharge Data Attending Provider: Reece Myers Admit Date/Time: 09/14/18 13:20 Quality VTE Deep Vein Thrombosis/Pulmonary Embolism Present on Admission: No
--- NOTE | 2018-09-15 10:43 | PC.NURSE ---
Pt reports minimal pain. Tolerating food and fluids, has not passed flatus yet. Ambulating in hallway. Plan to dc home later this afternoon.
[2018-09-15] MEDS: INFLUENZA VACCINE 0.5 ML SYRINGE IM (11:56)
--- NOTE | 2018-09-15 14:14 | PC.NURSE ---
Pt given dc information and all questions answered. IV removed and pt taken by wheelchair to ER entrance.
== END 2018-09-15 14:14 | disposition home or self-care (01) ==
LOC: ED 12:30 → AC 13:20
PROVIDERS: Admitting Provider Surgery; Emergency Provider Emergency Medicine; Visit Provider Surgery
PROC: 0FT44ZZ Resection of Gallbladder, Percutaneous Endoscopic Approach (ICD-10-PCS; CPT 47562; principal; 2018-09-14 16:15)
DX: R10.11 Right upper quadrant pain (principal); E66.01 Morbid (severe) obesity due to excess calories; Z68.41 Body mass index [BMI] 40.0-44.9, adult; K80.00 Calculus of gallbladder with acute cholecystitis without obstruction; R16.0 Hepatomegaly, not elsewhere classified; F17.210 Nicotine dependence, cigarettes, uncomplicated
CPT/HCPCS: 47562; 36591; 76700; 80053; 81003; 83690; 84703; 85025; 85610; 85730; 88304; 90471; 90656; 96374; 96375; 99283; 99285; G0378; J0690; J1100; J1170; J1650; J1885; J2270; J2405; J2704; Q2038

== ENCOUNTER 2018-09-23 17:55 | Emergency (ER) | payer OTHER, SELFPAY ==
[2018-09-14 14:16] VITALS: BMI 41.5
[2018-09-23 18:06] VITALS: BP 130/100; PULSE 94; RESP 20; TEMP 36.4; O2SAT 98; BMI 41.5
--- NOTE | 2018-09-23 18:32 | ED.FEMALEGU ---
HPI - Female Genitourinary <ROMELIA Zelaya-BC - Last Filed: 09/23/18 21:08> General Chief complaint: Vaginal Bleeding Stated complaint: VAGINAL BLEEDING,PAIN Time Seen by Provider: 09/23/18 17:58 Source: patient Mode of arrival: ambulatory Limitations: no limitations History of Present Illness HPI Narrative: Patient is an obese , every day smoker who presents with chief complaint of severe vaginal bleeding that started today. She states that her normal period started last Monday, but she had sudden onset of severe vaginal bleeding today. She states she has gone through 6 overnight pads and 3 hr. She states she is passing baseball size clots. She denies any chance of as she states she has had her tubes tied. She denies any dysuria urgency or frequency. She states she is having lower abdominal cramping but denies nausea vomiting or diarrhea. Related Data Home Medications Medication Instructions Recorded Confirmed multivitamin 1 tab PO DAILY 09/14/18 09/14/18 Previous Rx's Medication Instructions Recorded oxycodone 5 mg PO Q3H PRN #30 tab 09/15/18 Allergies Allergy/AdvReac Type Severity Reaction Status Date / Time No Known Drug Allergies Allergy Verified 09/14/18 10:21 Review of Systems <ROMELIA Zelaya-BC - Last Filed: 09/23/18 21:08> Constitutional Denies anorexia, Denies body ache(s), Denies chills, Denies difficulty sleeping, Denies fatigue, Denies fever(s) and Denies frequent falls ENT Ears, Nose, Mouth, and Throat: Denies dizziness Cardiovascular Denies chest pain, Denies irregular heart rhythm, Denies lightheadedness, Denies palpitations, Denies dyspnea, Denies dyspnea on exertion and Denies orthopnea Respiratory Denies cough, Denies dyspnea, Denies dyspnea on exertion and Denies wheezing Gastrointestinal Gastrointestinal: Reports abdominal pain, Denies belching, Denies melena, Denies bloating, Denies hematochezia, Denies change in bowel habits, Denies coffee ground emesis, Denies constipation, Denies diarrhea, Denies vomiting and Denies hematemesis Musculoskeletal Denies numbness Neurologic Denies behavioral changes, Denies confusion, Denies dizziness, Denies frequent falls and Denies numbness Psychiatric Denies behavioral changes and Denies confusion Endocrine Denies fatigue and Denies palpitations Hematologic/Lymphatic Denies easy bruising Allergic/Immunologic Denies wheezing Exam <GISSELL Zelaya - Last Filed: 09/23/18 21:08> Initial Vital Signs Initial Vital Signs: Vital Signs Temperature 97.6 F 09/23/18 18:06 Pulse Rate 94 H 09/23/18 18:06 Respiratory Rate 20 09/23/18 18:06 Blood Pressure 130/100 H 09/23/18 18:06 Pulse Oximetry 98 09/23/18 18:06 Const General: cooperative, comfortable and well developed Resp Effort & Inspection: normal respiratory effort, able to speak in complete sentences, no audible wheezes, no cough, respiratory effort not decreased, no grunting, not labored and no nasal flaring Auscultation: clear to auscultation bilaterally, no bronchovesicular breath sounds, no crackles, lung sounds not diminished, no egophony, no rales, no rhonchi and no wheezes Cardio Rate: regular rate Rhythm: regular rhythm Heart Sounds: S1 normal and S2 normal GI Auscultation: normal bowel sounds Skin General: no rashes or lesions noted, No jaundice and No petechiae Neuro General: alert, oriented x3, gait normal and no focal motor deficits Speech: speech normal Psych Appearance: well kempt Mental Status: mental status grossly normal Attitude: cooperative Thought Content: normal and suicidality Judgment: judgment good <Rupesh Cruz DO - Last Filed: 09/23/18 23:10> Initial Vital Signs Initial Vital Signs: Vital Signs Temperature 97.6 F 09/23/18 18:06 Pulse Rate 94 H 09/23/18 18:06 Respiratory Rate 20 09/23/18 18:06 Blood Pressure 130/100 H 09/23/18 18:06 Pulse Oximetry 98 09/23/18 18:06 Course <GISSELL Zelaya - Last Filed: 09/23/18 21:08> Orders Ordered: ED Orders 09/23/18 18:41 US pelvic complete Stat 09/23/18 18:48 Complete Blood Count AUTO DIFF Stat Comprehensive Metabolic Panel Stat 09/23/18 20:00 Urinalysis and Microscopic Stat Urine Culture Stat Reevaluation(s) Reevaluation #1: Discussed at length patient normal hemoglobin hematocrit. Discussed waiting for ultrasound results from radiology. Time: 19:49 Reevaluation #2: Discussed with patient ultrasound report. Discussed plan of care to follow up with primary care. Time: 20:31 Vital Signs - 8 hr 09/23/18 18:06 09/23/18 20:40 Temperature 97.6 F Pulse Rate 94 H 88 Respiratory Rate 20 14 Blood Pressure 130/100 H 123/90 Pulse Oximetry 98 96 <Rupesh Cruz DO - Last Filed: 09/23/18 23:10> Orders Ordered: ED Orders 09/23/18 18:41 US pelvic complete Stat 09/23/18 18:48 Complete Blood Count AUTO DIFF Stat Comprehensive Metabolic Panel Stat 09/23/18 20:00 Urinalysis and Microscopic Stat Urine Culture Stat Vital Signs - 8 hr 09/23/18 18:06 09/23/18 20:40 Temperature 97.6 F Pulse Rate 94 H 88 Respiratory Rate 20 14 Blood Pressure 130/100 H 123/90 Pulse Oximetry 98 96 MDM - Female Genitourinary <ROMELIA Zelaya- - Last Filed: 09/23/18 21:08> Differential Diagnosis Likely urinary tract infection, ovarian cyst, dysmenorrhea and other Lab Data Attestation: I reviewed the patient's lab results. Result diagrams: 09/23/18 18:48 09/23/18 18:48 Lab Results 09/23/18 09/23/18 09/23/18 Range/Units 18:48 18:48 20:00 WBC 10.8 (4.5-11.0) X10^3/uL RBC 4.59 (4.0-5.2) X10^6/uL Hgb 14.7 (12.0-16.0) g/dL Hct 42.5 (36-46) % MCV 92.6 (80-100) fL MCH 32.1 (26-34) PG MCHC 34.7 (30-36) % RDW 13.5 (11.6-14.8) % Plt Count 266 (150-400) X10^3/uL Neut % (Auto) 71.9 (50-75) % Lymph % (Auto) 18.0 L (25-40) % Ashley % (Auto) 5.6 (3-14) % Eos % (Auto) 3.9 (2-4) % Baso % (Auto) 0.6 (0-2) % Neut # (Auto) 7700 H (3236-9483) /uL Sodium 143 (137-145) mmol/L Potassium 4.1 (3.4-5.1) mmol/L Chloride 106 (98-107) mmol/L Carbon Dioxide 24 (22-32) mmol/L BUN 8 (7-17) mg/dL Creatinine 0.70 (0.52-1.04) mg/dL Estimated GFR > 60.0 (>60) mL/min BUN/Creatinine Ratio 11.4 (6-22) Glucose 102 H (70-100) mg/dL Calcium 9.1 (8.4-10.2) mg/dL Total Bilirubin 0.7 (0.2-1.3) mg/dL AST 20 (14-36) IU/L ALT 85 H (9-52) IU/L Alkaline Phosphatase 87 (38-126) U/L Total Protein 7.3 (6.3-8.2) g/dL Albumin 4.4 (3.5-5.0) g/dL Globulin 2.9 (1.7-4.1) g/dL Albumin/Globulin Ratio 1.5 (1.0-2.8) Urine Color Red Urine Appearance Cloudy Urine pH 6.5 (4.5-8.0) Ur Specific [place] 1.015 (1.000-1.035) Urine Protein Trace H (Negative) Urine Glucose (UA) Negative (Normal) g/dL Urine Ketones Negative (NEGATIVE) Urine Occult Blood 3+ H (Negative) Urine Nitrate Negative (Negative) Urine Bilirubin Negative (NEGATIVE) Urine Urobilinogen 0.2 (0.2) E.U./dL Ur Leukocyte Esterase Negative (NEGATIVE) Urine RBC 30-100/hpf H (0-5/HPF) Urine WBC 1-5/hpf (0-5/HPF) Ur Squamous Epith Cells 0-1 /hpf Urine Bacteria Occasional (0-1) (None) Urine Mucus 1+ H (Negative) Ur Culture Indicated? Specimen cultured Micro UA Comment Not Reportable Point of Care Testing Test Results Negative Imaging Data pelvic us: Radiologist's impression: [address] [address] Ultrasound Report Signed Patient: Jeannette Masterson [facility]#: [id number] : 1990Acct:[id number] Age/Sex: 28 / FDate of Service: 09/23/18 Loc: ED Accession Number: [id number] Procedure: US pelvic complete Ordering Provider: Sharmin Vega PROCEDURE: US PELVIC COMPLETE INDICATIONS: vaginal bleeding, abd pain TECHNIQUE: Real-time scanning was performed of the pelvic organs, with image documentation. Additional endovaginal scanning was necessary due to incomplete visualization of the adnexal and endometrial structures by transabdominal scanning. COMPARISON: None. FINDINGS: Transabdominal scanning: Limited scanning through the kidneys shows no hydronephrosis. Small amount of free fluid within the pelvis, within physiological limits in a menstruating female. Endovaginal scanning: Uterus: Uterus is normal in size at 10.2 x 5.2 x 6.8 cm. The endometrium is not well-seen. No increased vascularity within the endometrium. Ovaries: Right ovary is not well-seen. Right adnexa is grossly unremarkable. Left ovary is within normal limits. IMPRESSION: 1. Limited evaluation of the endometrium. Nonvisualized right ovary. 2. Small amount of physiologic free fluid within the pelvis. Dictated by: Blanca Campos M.D. on 09/23/2018 at 20:01 Approved by: Blanca Campos M.D. on 09/23/2018 at 20:03 [facility] Narrative Medical decision making narrative: Patient is a 28-year-old female presented with chief complaint of vaginal bleeding and passing clots. She is hemodynamically stable and nontoxic appearing the emergency department. Her labs were within normal limits and her was negative. Her urine did not show any signs of infection. She had a grossly normal ultrasound done today. Thus I discussed follow-up with her primary care provider and recommended follow-up with her OBGYN. I encouraged ibuprofen. Patient has no questions or concerns upon discharge. Discussed return precautions of dizziness, lightheadedness, excessive vaginal bleeding or any acute concerns. <Rupesh Cruz DO - Last Filed: 09/23/18 23:10> Lab Data Lab Results 09/23/18 09/23/18 09/23/18 Range/Units 18:48 18:48 20:00 WBC 10.8 (4.5-11.0) X10^3/uL RBC 4.59 (4.0-5.2) X10^6/uL Hgb 14.7 (12.0-16.0) g/dL Hct 42.5 (36-46) % MCV 92.6 (80-100) fL MCH 32.1 (26-34) PG MCHC 34.7 (30-36) % RDW 13.5 (11.6-14.8) % Plt Count 266 (150-400) X10^3/uL Neut % (Auto) 71.9 (50-75) % Lymph % (Auto) 18.0 L (25-40) % Ashley % (Auto) 5.6 (3-14) % Eos % (Auto) 3.9 (2-4) % Baso % (Auto) 0.6 (0-2) % Neut # (Auto) 7700 H (0859-0364) /uL Sodium 143 (137-145) mmol/L Potassium 4.1 (3.4-5.1) mmol/L Chloride 106 (98-107) mmol/L Carbon Dioxide 24 (22-32) mmol/L BUN 8 (7-17) mg/dL Creatinine 0.70 (0.52-1.04) mg/dL Estimated GFR > 60.0 (>60) mL/min BUN/Creatinine Ratio 11.4 (6-22) Glucose 102 H (70-100) mg/dL Calcium 9.1 (8.4-10.2) mg/dL Total Bilirubin 0.7 (0.2-1.3) mg/dL AST 20 (14-36) IU/L ALT 85 H (9-52) IU/L Alkaline Phosphatase 87 (38-126) U/L Total Protein 7.3 (6.3-8.2) g/dL Albumin 4.4 (3.5-5.0) g/dL Globulin 2.9 (1.7-4.1) g/dL Albumin/Globulin Ratio 1.5 (1.0-2.8) Urine Color Red Urine Appearance Cloudy Urine pH 6.5 (4.5-8.0) Ur Specific [place] 1.015 (1.000-1.035) Urine Protein Trace H (Negative) Urine Glucose (UA) Negative (Normal) g/dL Urine Ketones Negative (NEGATIVE) Urine Occult Blood 3+ H (Negative) Urine Nitrate Negative (Negative) Urine Bilirubin Negative (NEGATIVE) Urine Urobilinogen 0.2 (0.2) E.U./dL Ur Leukocyte Esterase Negative (NEGATIVE) Urine RBC 30-100/hpf H (0-5/HPF) Urine WBC 1-5/hpf (0-5/HPF) Ur Squamous Epith Cells 0-1 /hpf Urine Bacteria Occasional (0-1) (None) Urine Mucus 1+ H (Negative) Ur Culture Indicated? Specimen cultured Micro UA Comment Not Reportable Point of Care Testing Test Results Negative Discharge Plan Departure Patient Disposition: Home Clinical Impression: Vaginal bleeding Discharge Date/Time: 09/23/18 20:42 Interventions: ED Discharge Assessment Last Done: 09/23/18 20:40 Instructions: DI for Vaginal Bleeding Activity Restrictions/Additional Instructions: You came in today because of vaginal bleeding. Your ultrasound shows no obvious abnormality and your is negative. The video game technician recent concerns of a thickened endometrium, which we talked about but the radiologist did not overtly express this in his report Your blood counts are okay and her vital signs are stable. Please follow-up with your primary OBGYN. Come back to emergency department for any acute concerns including passing out, dizziness or any acute concerns. Prescriptions: No Action multivitamin Tablet 1 tab PO DAILY RF: 0 oxycodone 5 mg tablet 5 mg PO Q3H PRN (Reason: pain) Qty: 30 RF: 0 Referrals: [facility] [Provider Group] Stand Alone Forms: Work/School Restrictions <Rupesh Cruz DO - Last Filed: 09/23/18 23:10> Cosign ED Attending [place] Attestation: I was immediately available in the department for consultation. Documentation has been reviewed. I agree with assessment and plan.
--- NOTE | 2018-09-23 18:41 | DI.US.S_ITS ---
PROCEDURE: US PELVIC COMPLETE INDICATIONS: vaginal bleeding, abd pain TECHNIQUE: Real-time scanning was performed of the pelvic organs, with image documentation. Additional endovaginal scanning was necessary due to incomplete visualization of the adnexal and endometrial structures by transabdominal scanning. COMPARISON: None. FINDINGS: Transabdominal scanning: Limited scanning through the kidneys shows no hydronephrosis. Small amount of free fluid within the pelvis, within physiological limits in a menstruating female. Endovaginal scanning: Uterus: Uterus is normal in size at 10.2 x 5.2 x 6.8 cm. The endometrium is not well-seen. No increased vascularity within the endometrium. Ovaries: Right ovary is not well-seen. Right adnexa is grossly unremarkable. Left ovary is within normal limits. IMPRESSION: 1. Limited evaluation of the endometrium. Nonvisualized right ovary. 2. Small amount of physiologic free fluid within the pelvis. Dictated by: Blanca Campos M.D. on 09/23/2018 at 20:01 Approved by: Blanca Campos M.D. on 09/23/2018 at 20:03
[2018-09-23 18:55] LABS: Add Manual Diff / Slide Review NO; Basophils Percent Auto 0.6 % (0-2); Eosinophils Percent Auto 3.9 % (2-4); Hematocrit 42.5 % (36-46); Hemoglobin 14.7 g/dL (12.0-16.0); Mean Corpuscular HGB Conc 34.7 % (30-36); Mean Corpuscular Hemoglobin 32.1 PG (26-34); Mean Corpuscular Volume 92.6 fL (80-100); Monocytes Percent Auto 5.6 % (3-14); Neutrophils Absolute Auto 7700 /uL (3000-5900); Neutrophils Percent Auto 71.9 % (50-75); Platelet Count 266 X10^3/uL (150-400); Red Blood Cell Count 4.59 X10^6/uL (4.0-5.2); Red Cell Distribution Width 13.5 % (11.6-14.8); White Blood Cell Count 10.8 X10^3/uL (4.5-11.0)
--- NOTE | 2018-09-23 19:05 | ED_ITS ---
HPI - Female Genitourinary <ROMELIA Zelaya-BC - Last Filed: 09/23/18 21:08> General Chief complaint: Vaginal Bleeding Stated complaint: VAGINAL BLEEDING,PAIN Time Seen by Provider: 09/23/18 17:58 Source: patient Mode of arrival: ambulatory Limitations: no limitations History of Present Illness HPI Narrative: Patient is an obese , every day smoker who presents with chief complaint of severe vaginal bleeding that started today. She states that her normal period started last Monday, but she had sudden onset of severe vaginal bleeding today. She states she has gone through 6 overnight pads and 3 hr. She states she is passing baseball size clots. She denies any chance of as she states she has had her tubes tied. She denies any dysuria urgency or frequency. She states she is having lower abdominal cramping but denies nausea vomiting or diarrhea. Related Data Home Medications Medication Instructions Recorded Confirmed multivitamin 1 tab PO DAILY 09/14/18 09/14/18 Previous Rx's Medication Instructions Recorded oxycodone 5 mg PO Q3H PRN #30 tab 09/15/18 Allergies Allergy/AdvReac Type Severity Reaction Status Date / Time No Known Drug Allergies Allergy Verified 09/14/18 10:21 Review of Systems <ROMELIA Zelaya-BC - Last Filed: 09/23/18 21:08> Constitutional Denies anorexia, Denies body ache(s), Denies chills, Denies difficulty sleeping , Denies fatigue, Denies fever(s) and Denies frequent falls ENT Ears, Nose, Mouth, and Throat: Denies dizziness Cardiovascular Denies chest pain, Denies irregular heart rhythm, Denies lightheadedness, Denies palpitations, Denies dyspnea, Denies dyspnea on exertion and Denies orthopnea Respiratory Denies cough, Denies dyspnea, Denies dyspnea on exertion and Denies wheezing Gastrointestinal Gastrointestinal: Reports abdominal pain, Denies belching, Denies melena, Denies bloating, Denies hematochezia, Denies change in bowel habits, Denies coffee ground emesis, Denies constipation, Denies diarrhea, Denies vomiting and Denies hematemesis Musculoskeletal Denies numbness Neurologic Denies behavioral changes, Denies confusion, Denies dizziness, Denies frequent falls and Denies numbness Psychiatric Denies behavioral changes and Denies confusion Endocrine Denies fatigue and Denies palpitations Hematologic/Lymphatic Denies easy bruising Allergic/Immunologic Denies wheezing Exam <GISSELL Zelaya - Last Filed: 09/23/18 21:08> Initial Vital Signs Initial Vital Signs: Vital Signs Temperature 97.6 F 09/23/18 18:06 Pulse Rate 94 H 09/23/18 18:06 Respiratory Rate 20 09/23/18 18:06 Blood Pressure 130/100 H 09/23/18 18:06 Pulse Oximetry 98 09/23/18 18:06 Const General: cooperative, comfortable and well developed Resp Effort & Inspection: normal respiratory effort, able to speak in complete sentences, no audible wheezes, no cough, respiratory effort not decreased, no grunting, not labored and no nasal flaring Auscultation: clear to auscultation bilaterally, no bronchovesicular breath sounds, no crackles, lung sounds not diminished, no egophony, no rales, no rhonchi and no wheezes Cardio Rate: regular rate Rhythm: regular rhythm Heart Sounds: S1 normal and S2 normal GI Auscultation: normal bowel sounds Skin General: no rashes or lesions noted, No jaundice and No petechiae Neuro General: alert, oriented x3, gait normal and no focal motor deficits Speech: speech normal Psych Appearance: well kempt Mental Status: mental status grossly normal Attitude: cooperative Thought Content: normal and suicidality Judgment: judgment good <Rupesh Cruz DO - Last Filed: 09/23/18 23:10> Initial Vital Signs Initial Vital Signs: Vital Signs Temperature 97.6 F 09/23/18 18:06 Pulse Rate 94 H 09/23/18 18:06 Respiratory Rate 20 09/23/18 18:06 Blood Pressure 130/100 H 09/23/18 18:06 Pulse Oximetry 98 09/23/18 18:06 Course <GISSELL Zelaya - Last Filed: 09/23/18 21:08> Orders Ordered: ED Orders 09/23/18 18:41 US pelvic complete Stat 09/23/18 18:48 Complete Blood Count AUTO DIFF Stat Comprehensive Metabolic Panel Stat 09/23/18 20:00 Urinalysis and Microscopic Stat Urine Culture Stat Reevaluation(s) Reevaluation #1: Discussed at length patient normal hemoglobin hematocrit. Discussed waiting for ultrasound results from radiology. Time: 19:49 Reevaluation #2: Discussed with patient ultrasound report. Discussed plan of care to follow up with primary care. Time: 20:31 Vital Signs - 8 hr 09/23/18 18:06 09/23/18 20:40 Temperature 97.6 F Pulse Rate 94 H 88 Respiratory Rate 20 14 Blood Pressure 130/100 H 123/90 Pulse Oximetry 98 96 <Rupesh Cruz DO - Last Filed: 09/23/18 23:10> Orders Ordered: ED Orders 09/23/18 18:41 US pelvic complete Stat 09/23/18 18:48 Complete Blood Count AUTO DIFF Stat Comprehensive Metabolic Panel Stat 09/23/18 20:00 Urinalysis and Microscopic Stat Urine Culture Stat Vital Signs - 8 hr 09/23/18 18:06 09/23/18 20:40 Temperature 97.6 F Pulse Rate 94 H 88 Respiratory Rate 20 14 Blood Pressure 130/100 H 123/90 Pulse Oximetry 98 96 MDM - Female Genitourinary <ROMELIA Zelaya- - Last Filed: 09/23/18 21:08> Differential Diagnosis Likely urinary tract infection, ovarian cyst, dysmenorrhea and other Lab Data Attestation: I reviewed the patient's lab results. Result diagrams: 09/23/18 18:48 09/23/18 18:48 Lab Results 09/23/18 09/23/18 09/23/18 Range/Units 18:48 18:48 20:00 WBC 10.8 (4.5-11.0) X10^3/uL RBC 4.59 (4.0-5.2) X10^6/uL Hgb 14.7 (12.0-16.0) g/dL Hct 42.5 (36-46) % MCV 92.6 (80-100) fL MCH 32.1 (26-34) PG MCHC 34.7 (30-36) % RDW 13.5 (11.6-14.8) % Plt Count 266 (150-400) X10^3/uL Neut % (Auto) 71.9 (50-75) % Lymph % (Auto) 18.0 L (25-40) % [place] % (Auto) 5.6 (3-14) % Eos % (Auto) 3.9 (2-4) % Baso % (Auto) 0.6 (0-2) % Neut # (Auto) 7700 H (0725-6096) /uL Sodium 143 (137-145) mmol/L Potassium 4.1 (3.4-5.1) mmol/L Chloride 106 (98-107) mmol/L Carbon Dioxide 24 (22-32) mmol/L BUN 8 (7-17) mg/dL Creatinine 0.70 (0.52-1.04) mg/dL Estimated GFR > 60.0 (>60) mL/min BUN/Creatinine Ratio 11.4 (6-22) Glucose 102 H (70-100) mg/dL Calcium 9.1 (8.4-10.2) mg/dL Total Bilirubin 0.7 (0.2-1.3) mg/dL AST 20 (14-36) IU/L ALT 85 H (9-52) IU/L Alkaline Phosphatase 87 (38-126) U/L Total Protein 7.3 (6.3-8.2) g/dL Albumin 4.4 (3.5-5.0) g/dL Globulin 2.9 (1.7-4.1) g/dL Albumin/Globulin Ratio 1.5 (1.0-2.8) Urine Color Red Urine Appearance Cloudy Urine pH 6.5 (4.5-8.0) Ur Specific [place] 1.015 (1.000-1.035) Urine Protein Trace H (Negative) Urine Glucose (UA) Negative (Normal) g/dL Urine Ketones Negative (NEGATIVE) Urine Occult Blood 3+ H (Negative) Urine Nitrate Negative (Negative) Urine Bilirubin Negative (NEGATIVE) Urine Urobilinogen 0.2 (0.2) E.U./dL Ur Leukocyte Esterase Negative (NEGATIVE) Urine RBC 30-100/hpf H (0-5/HPF) Urine WBC 1-5/hpf (0-5/HPF) Ur Squamous Epith Cells 0-1 /hpf Urine Bacteria Occasional (0-1) (None) Urine Mucus 1+ H (Negative) Ur Culture Indicated? Specimen cultured Micro UA Comment Not Reportable Point of Care Testing Test Results Negative Imaging Data pelvic us: Radiologist's impression: [address] [address] Ultrasound Report Signed Patient: Jeannette Masterson [facility]#: [id number] : 1990Acct:[id number] Age/Sex: 28 / FDate of Service: 09/23/18 Loc: ED Accession Number: [id number] Procedure: US pelvic complete Ordering Provider: Sharmin Vega PROCEDURE: US PELVIC COMPLETE INDICATIONS: vaginal bleeding, abd pain TECHNIQUE: Real-time scanning was performed of the pelvic organs, with image documentation. Additional endovaginal scanning was necessary due to incomplete visualization of the adnexal and endometrial structures by transabdominal scanning. COMPARISON: None. FINDINGS: Transabdominal scanning: Limited scanning through the kidneys shows no hydronephrosis. Small amount of free fluid within the pelvis, within physiological limits in a menstruating female. Endovaginal scanning: Uterus: Uterus is normal in size at 10.2 x 5.2 x 6.8 cm. The endometrium is not well-seen. No increased vascularity within the endometrium. Ovaries: Right ovary is not well-seen. Right adnexa is grossly unremarkable. Left ovary is within normal limits. IMPRESSION: 1. Limited evaluation of the endometrium. Nonvisualized right ovary. 2. Small amount of physiologic free fluid within the pelvis. Dictated by: Blanca Campos M.D. on 09/23/2018 at 20:01 Approved by: Blanca Campos M.D. on 09/23/2018 at 20:03 [facility] Narrative Medical decision making narrative: Patient is a 28-year-old female presented with chief complaint of vaginal bleeding and passing clots. She is hemodynamically stable and nontoxic appearing the emergency department. Her labs were within normal limits and her was negative. Her urine did not show any signs of infection. She had a grossly normal ultrasound done today. Thus I discussed follow-up with her primary care provider and recommended follow-up with her OBGYN. I encouraged ibuprofen. Patient has no questions or concerns upon discharge. Discussed return precautions of dizziness , lightheadedness, excessive vaginal bleeding or any acute concerns. <Rupesh Cruz DO - Last Filed: 09/23/18 23:10> Lab Data Lab Results 09/23/18 09/23/18 09/23/18 Range/Units 18:48 18:48 20:00 WBC 10.8 (4.5-11.0) X10^3/uL RBC 4.59 (4.0-5.2) X10^6/uL Hgb 14.7 (12.0-16.0) g/dL Hct 42.5 (36-46) % MCV 92.6 (80-100) fL MCH 32.1 (26-34) PG MCHC 34.7 (30-36) % RDW 13.5 (11.6-14.8) % Plt Count 266 (150-400) X10^3/uL Neut % (Auto) 71.9 (50-75) % Lymph % (Auto) 18.0 L (25-40) % [place] % (Auto) 5.6 (3-14) % Eos % (Auto) 3.9 (2-4) % Baso % (Auto) 0.6 (0-2) % Neut # (Auto) 7700 H (8717-2541) /uL Sodium 143 (137-145) mmol/L Potassium 4.1 (3.4-5.1) mmol/L Chloride 106 (98-107) mmol/L Carbon Dioxide 24 (22-32) mmol/L BUN 8 (7-17) mg/dL Creatinine 0.70 (0.52-1.04) mg/dL Estimated GFR > 60.0 (>60) mL/min BUN/Creatinine Ratio 11.4 (6-22) Glucose 102 H (70-100) mg/dL Calcium 9.1 (8.4-10.2) mg/dL Total Bilirubin 0.7 (0.2-1.3) mg/dL AST 20 (14-36) IU/L ALT 85 H (9-52) IU/L Alkaline Phosphatase 87 (38-126) U/L Total Protein 7.3 (6.3-8.2) g/dL Albumin 4.4 (3.5-5.0) g/dL Globulin 2.9 (1.7-4.1) g/dL Albumin/Globulin Ratio 1.5 (1.0-2.8) Urine Color Red Urine Appearance Cloudy Urine pH 6.5 (4.5-8.0) Ur Specific [place] 1.015 (1.000-1.035) Urine Protein Trace H (Negative) Urine Glucose (UA) Negative (Normal) g/dL Urine Ketones Negative (NEGATIVE) Urine Occult Blood 3+ H (Negative) Urine Nitrate Negative (Negative) Urine Bilirubin Negative (NEGATIVE) Urine Urobilinogen 0.2 (0.2) E.U./dL Ur Leukocyte Esterase Negative (NEGATIVE) Urine RBC 30-100/hpf H (0-5/HPF) Urine WBC 1-5/hpf (0-5/HPF) Ur Squamous Epith Cells 0-1 /hpf Urine Bacteria Occasional (0-1) (None) Urine Mucus 1+ H (Negative) Ur Culture Indicated? Specimen cultured Micro UA Comment Not Reportable Point of Care Testing Test Results Negative Discharge Plan Departure Patient Disposition: Home Clinical Impression: Vaginal bleeding Discharge Date/Time: 09/23/18 20:42 Interventions: ED Discharge Assessment Last Done: 09/23/18 20:40 Instructions: DI for Vaginal Bleeding Activity Restrictions/Additional Instructions: You came in today because of vaginal bleeding. Your ultrasound shows no obvious abnormality and your is negative. The nail technician recent concerns of a thickened endometrium, which we talked about but the radiologist did not overtly express this in his report Your blood counts are okay and her vital signs are stable. Please follow-up with your primary OBGYN. Come back to emergency department for any acute concerns including passing out, dizziness or any acute concerns. Prescriptions: No Action multivitamin Tablet 1 tab PO DAILY RF: 0 oxycodone 5 mg tablet 5 mg PO Q3H PRN (Reason: pain) Qty: 30 RF: 0 Referrals: [facility] [Provider Group] Stand Alone Forms: Work/School Restrictions <Rupesh Cruz DO - Last Filed: 09/23/18 23:10> Cosign ED Attending [place] Attestation: I was immediately available in the department for consultation. Documentation has been reviewed. I agree with assessment and plan.
[2018-09-23 19:09] LABS: Alanine Aminotransferase 85 IU/L (9-52); Albumin 4.4 g/dL (3.5-5.0); Albumin Globulin Ratio 1.5 (1.0-2.8); Alkaline Phosphatase 87 U/L (38-126); Aspartate Aminotransferase 20 IU/L (14-36); BUN Creatinine Ratio 11.4 (6-22); Bilirubin Total 0.7 mg/dL (0.2-1.3); Blood Urea Nitrogen 8 mg/dL (7-17); Calcium 9.1 mg/dL (8.4-10.2); Carbon Dioxide 24 mmol/L (22-32); Chloride 106 mmol/L (98-107); Estimated Glomerular Filt Rate > 60.0 mL/min (>60); Globulin 2.9 g/dL (1.7-4.1); Glucose 102 mg/dL (70-100); HEMOLYSIS < 15 (0-50); Potassium 4.1 mmol/L (3.4-5.1); Sodium 143 mmol/L (137-145); Total Protein 7.3 g/dL (6.3-8.2)
[2018-09-23 20:13] LABS: Bilirubin Urine UA NEGATIVE (NEGATIVE); Glucose Urine UA NEGATIVE (Normal); Ketones Urine UA NEGATIVE (NEGATIVE); Leukocyte Esterase Urine UA NEGATIVE (NEGATIVE); Nitrite Urine UA NEGATIVE (Negative); Occult Blood Urine UA 3+ (Negative); Protein Urine UA TRACE (Negative); Specific Gravity Urine UA 1.015 (1.000-1.035); Urobilinogen Urine UA 0.2 E.U./dL (0.2); pH Urine UA 6.5 (4.5-8.0)
[2018-09-23 20:14] LABS: Appearance Urine UA CLOUDY; Color Urine UA RED
[2018-09-23 20:15] LABS: Bacteria Urine Occasional (0-1); Mucus Urine 1+ (Negative); RBC Urine 30-100/HPF (0-5/HPF); Squamous Epithelial Cell Urine 0-1 /HPF; WBC Urine 1-5/HPF (0-5/HPF)
[2018-09-23 20:16] LABS: Culture Indicated Urine Specimen Cultured
[2018-09-23 20:40] VITALS: BP 123/90; PULSE 88; RESP 14; O2SAT 96
== END 2018-09-23 20:42 | disposition home or self-care (01) ==
PROVIDERS: Emergency Provider Nurse Practitioner Family
DX: N93.9 Abnormal uterine and vaginal bleeding, unspecified (principal)
CPT/HCPCS: 36415; 76830; 76856; 80053; 81001; 81025; 85025; 87077; 87086; 87147; 99282; 99284